=== PATIENT | female | born 1985 | race American Indian/Alaskan Native ===

== ENCOUNTER 2019-03-12 11:55 | Emergency (ER) | payer OTHER ==
[2019-03-12 12:06] VITALS: BP 98/68
--- NOTE | 2019-03-12 12:07 | Emergency Department Report ---
Chief Complaint: Skin Rash Stated Complaint: ITCHING Time Seen by Provider: 03/12/19 12:05 - HPI History of Present Illness: This is a 33 y.o. F. that presents to the ER with pruritus and abdominal pain x 4 days. LMP 03/09/19 - Exam Vital Signs: Vital Signs 03/12/19 12:05 Temperature 97.9 F Pulse Rate 102 H Respiratory 20 Rate Blood Pressure 98/68 O2 Sat by Pulse 98 Oximetry MSE screening note: Focused history and physical exam performed. Due to findings the following was ordered: This initial assessment/diagnostic orders/clinical plan/treatment(s) is/are subject to change based on patient's health status, clinical progression and re- assessment by fellow clinical providers in the ED. Further treatment and workup at subsequent clinical providers discretion. Patient/guardians urged not to elope from the ED as their condition may be serious if not clinically assessed and managed. Initial orders include: 1- Patient sent to [facility] for further evaluation and treatment 2- Labs ED Disposition for MSE Condition: Stable
[2019-03-12 12:29] LABS: Eosinophils % (Auto) 0.3 % (0.0-4.3); Hemoglobin 12.1 gm/dl (10.1-14.3); Lymphocytes # (Auto) 1.4 K/mm3 (1.2-5.4); Lymphocytes % (Auto) 17.1 % (13.4-35.0); Mean Corpuscular HGB Conc 33 % (30-34); Mean Corpuscular Volume 84 fl (79-97); Monocytes # (Auto) 0.6 K/mm3 (0.0-0.8); Monocytes % (Auto) 6.9 % (0.0-7.3); Platelet Count 248 K/mm3 (140-440); Red Blood Count 4.43 M/mm3 (3.65-5.03); Red Cell Distribution Width 14.6 % (13.2-15.2)
[2019-03-12 12:38] LABS: Bacteria,Urine 1+ /HPF (Negative); Bilirubin,Urine SM (Negative); Blood,Urine SM (Negative); Calcium Oxalate Crystals,Urine 2+; Color,Urine Amber (Yellow); Mucus,Urine 3+ /HPF
[2019-03-12 12:51] LABS: Alanine Aminotransferase 12 units/L (7-56); Albumin 3.3 g/dL (3.9-5); BUN/Creatinine Ratio 22; Blood Urea Nitrogen 11 mg/dL (7-17); Calcium 8.2 mg/dL (8.4-10.2); Hemolysis Index 3
[2019-03-12 13:08] LABS: Ictotest,Urine Negative (Negative)
[2019-03-12] MEDS ORDERED: BANOPHEN PO ONE (13:10)
[2019-03-12] MEDS ORDERED: DECADRON IM ONE (13:13)
[2019-03-12] MEDS ORDERED: PEPCID PO ONE (13:13)
--- NOTE | 2019-03-12 13:14 | Emergency Department Report ---
ED Rash HPI - HPI Chief Complaint: Skin Rash Stated Complaint: ITCHING Time Seen by Provider: 03/12/19 12:05 Duration: 1 Day Location: Other Suspected Cause: Unknown Rash Symptoms: Yes Itching, Yes Facial Swelling, No Tongue/Oral Swelling, No Breathing Difficulties, No Choking Sensation, No Wheezing/Dyspnea, No Peeling, No Blistering, No Fever, No Lightheaded, No Malaise, No Myalgias Severity: mild Other History: She is a 33-year-old female who comes to the ER today complaining of a generalized rash and itching for 3 days. She does not know what triggered this reaction. She is on no medicines. She has no allergies. She denies any medical problems. She has only had a in the past. ABCs are intact. Her vital signs are normal. She has no wheezing. Taken nothing at home. Nothing seems to make the rash worse. ED Review of Systems ROS: Stated complaint: ITCHING Other details as noted in HPI Comment: All other systems reviewed and negative Constitutional: denies: chills Eyes: denies: eye pain ENT: denies: throat pain Respiratory: denies: cough, shortness of breath, wheezing Cardiovascular: denies: chest pain Endocrine: denies: flushing Gastrointestinal: denies: nausea Genitourinary: denies: urgency Musculoskeletal: denies: back pain Skin: as per HPI, rash Neurological: denies: headache Psychiatric: denies: anxiety Hematological/Lymphatic: denies: easy bleeding ED Past Medical Hx - Past Medical History Previous Medical History?: No - Surgical History Additional Surgical History: C/S - Family History Family history: no significant - Social History Smoking Status: Never Smoker Substance Use Type: None - Medications Home Medications: Home Medications Medication Instructions Recorded Confirmed Last Taken Type Cetirizine HCl [ZyrTEC] 10 mg PO DAILY #30 capsule 03/12/19 Unknown Rx diphenhydrAMINE [Benadryl CAP] 25 mg PO Q8HR PRN #20 capsule 03/12/19 Unknown Rx predniSONE [Deltasone] 20 mg PO DAILY #5 tablet 03/12/19 Unknown Rx Rash Exam - Exam General: Vital signs noted. No distress. Alert and acting appropriately. HEENT: Yes Periorbital Edema, No Conjuctival Injection, No Chemosis, No Perioral Edema, No Tongue Edema, No Uvular Edema, No Compromised Airway, No Drooling Lungs: Yes Good Air Exchange, No Wheezes, No Ronchi, No Stridor, No Cough, No Labored Respirations, No Retractions, No Use of Accessory Muscles, No Other Abnormal Lung Sounds Heart: Yes Regular, No Murmur Skin: Yes Erythema, No Urticarial Rash, No Maculopapular Rash, No Morbilliform rash, No Bulla(e), No Excoriations, No Weeping, No Tenderness, No Edema, No Encrustations Other: Positive: Abdomen Normal, Neurologic Normal, Musculoskeletal Normal ED Course Vital Signs 03/12/19 12:05 Temperature 97.9 F Pulse Rate 102 H Respiratory 20 Rate Blood Pressure 98/68 O2 Sat by Pulse 98 Oximetry ED Medical Decision Making - Lab Data Result diagrams: 03/12/19 12:12 03/12/19 12:12 - Medical Decision Making ABC INTACT NO AIRWAY SWELLING VSS NO FEVER AMBULATORY TAKING PO MEDICATED IN ED WILL DC HOME WITH FAMILY AND DC PLAN OF CARE Vital Signs 03/12/19 12:05 Temperature 97.9 F Pulse Rate 102 H Respiratory 20 Rate Blood Pressure 98/68 O2 Sat by Pulse 98 Oximetry Critical care attestation.: If time is entered above; I have spent that time in minutes in the direct care of this critically ill patient, excluding procedure time. ED Disposition Clinical Impression: Allergic reaction Disposition: DC-01 TO HOME OR SELFCARE Is pt being admited?: No Does the pt Need Aspirin: No Condition: Stable Instructions: Urticaria (ED), Allergies (ED) Additional Instructions: follow up with pcp by Monday to be sure this is getting better meds as ordered today Prescriptions: diphenhydrAMINE [Benadryl CAP] 25 mg PO Q8HR PRN #20 capsule PRN Reason: Itching predniSONE [Deltasone] 20 mg PO DAILY #5 tablet Cetirizine HCl [ZyrTEC] 10 mg PO DAILY #30 capsule Referrals: FAYE JORDAN MD [Primary Care Provider] - 3-5 Days [facility] [Outside] - 3-5 Days Time of Disposition: 13:18 Print Language: SLOVAK
== END 2019-03-12 13:37 | disposition home or self-care (01) ==
LOC: ED 11:55
DX: T78.40XA Allergy, unspecified, initial encounter (principal); X58.XXXA Exposure to other specified factors, initial encounter
CPT/HCPCS: 36415; 80053; 81001; 84703; 85025; 96372; 99283; J1100; Q0163